=== PATIENT | male | born 1965 | race Hispanic/Latino ===

== ENCOUNTER → 2018-03-21 | Outpatient (CLI) | payer OTHER ==
[~2018-03-21] MED LIST: LORAZEPAM INJ 2 MG/ML VIAL ONE
--- NOTE | 2018-03-21 14:14 | Diagnostic Imaging Report ---
MRI SPINE LUMBAR WO HISTORY: Acute right-sided low back pain, right hip pain COMPARISON: None. TECHNIQUE: Sagittal T1, sagittal T2, sagittal STIR, axial T2, coronal T2, and axial proton density weighted images of the lumbar spine were obtained without contrast. DISCUSSION: Number of non-rib bearing lumbar vertebral bodies: 5. Alignment: Straightening of the lumbar lordosis. No scoliosis. Vertebrae: No fractures, infection or neoplasm. Conus medullaris: Normal, ends at L1-L2. Cauda equina: No masses or arachnoiditis. Posterior paraspinal muscles: Well preserved. There is mild paraspinal muscle edema at the lumbosacral junction, right greater than left. Soft tissues: A few small T2 hyperintense lesions in the right kidney are likely cysts. Mild L4-L5 and moderate L5-S1 disc degeneration is present. There may be posterior annular fissures at these levels. These findings are superimposed on a congenitally narrow lumbar spinal canal. T12-L1: Mild canal stenosis due to disc bulge and ligamentum flavum thickening. No significant foraminal stenosis. L1-L2: Patent canal and foramina. L2-L3: Patent canal and foramina. L3-L4: Disc bulge without significant canal or foraminal stenosis. L4-L5: Moderate to severe canal stenosis due to disc bulge and ligamentum flavum thickening. Both lateral recesses are effaced. Moderate to severe right and moderate left foraminal stenoses due to disc bulge and facet arthrosis. The right L4 nerve root is mildly enlarged with mild internal STIR hyperintensity (just lateral to the right neural foramen). L5-S1: Mild canal stenosis due to disc bulge and ligamentum flavum thickening. Moderate bilateral foraminal stenoses due to disc bulge and facet arthrosis. IMPRESSION: 1. Moderate L5-S1 and mild L4-L5 disc degeneration superimposed on a congenitally narrow lumbar spinal canal. 2. 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 3. Degenerative foraminal stenoses - moderate to severe right and moderate left at L4-L5; moderate bilaterally at L5-S1. 4. Mild STIR hyperintensity and enlargement of the right L4 nerve root (just lateral to the right L4-L5 neural foramen) may be due to compressive neuritis. 5. Mild paraspinal muscle edema at the lumbosacral junction, right greater than left. Signed by: Dr. Juan Carlos Lawrence M.D. on 03/21/2018 2:11 PM
== END ==
LOC: MRI 03-19 16:24
PROVIDERS: ATTEND Family Medicine
DX: M54.41 Lumbago with sciatica, right side (principal)
CPT/HCPCS: 72148; J2060

== ENCOUNTER → 2022-08-25 | Outpatient (CLI) | payer OTHER ==
[~2022-08-25] MED LIST changes: +BUSPIRONE HCL5 MG PO; +GLIPIZIDE5 MG PO; +LISINOPRIL2.5 MG PO; -LORAZEPAM INJ 2 MG/ML VIAL ONE; +METFORMIN HCL500 MG PO; +PRAVASTATIN SOD10 MG
== END ==
LOC: US 14:40
PROVIDERS: ATTEND Family Medicine
DX: R31.9 Hematuria, unspecified (principal)
CPT/HCPCS: 76770

== ENCOUNTER → 2024-01-18 | Outpatient (REF) | payer OTHER ==
[~2024-01-18] MED LIST changes: +ASPIRIN EC81 MG PO; +CRESTOR10 MG PO; +FISH OIL 1,0001 EAC7; +JARDIANCE25 MG PO; +METOPROLOL SUCC25 MG PO; +MULTI-VITAMIN1 EAC1 PO
== END ==
LOC: US 07:47
PROVIDERS: ATTEND Family Medicine
DX: R10.13 Epigastric pain (principal)
CPT/HCPCS: 76705